=== PATIENT | male | born 1970 | race African-American/Black ===

== ENCOUNTER 2021-02-19 17:06 | Emergency (ER) | payer OTHER ==
[2021-02-19 17:42] VITALS: BMI 23.7
[2021-02-19 19:07] LABS: BASO % 0.7 % (0-2.0); EOS % 0.8 % (0-4.5); HEMATOCRIT 40.1 % (35.4-49); HEMOGLOBIN 13.3 GM/dL (11.7-16.9); LYMPH % 19.6 % (8-40); MCHC 33.1 g/dl (32.0-35.9); MEAN CELL VOLUME 81.7 fl (80-96); MEAN PLT VOLUME 8.1 fl (7.5-11.1); MONO % 8.8 % (3.8-10.2); NEUT % 70.1 % (42.8-82.8); PLATELET COUNT 213 10^3/uL (134-434); RBC 4.91 M/mm3 (4.00-5.60); RDW 15.8 % (11.9-15.9); WHITE BLOOD COUNT 7.1 K/mm3 (4.0-10.0)
[2021-02-19 19:13] LABS: INR 1.01 (0.83-1.09); PROTHROMBIN TIME (PATIENT) 12.2 SEC (9.7-13.0)
[2021-02-19 19:19] LABS: ALBUMIN 3.4 g/dl (3.4-5.0); CALCIUM 8.6 mg/dL (8.5-10.1)
[2021-02-19 19:20] LABS: BLOOD UREA NITROGEN 23.1 mg/dL (7-18)
[2021-02-19 19:23] LABS: CREATININE 0.7 mg/dL (0.55-1.3)
[2021-02-19 19:24] LABS: BILIRUBIN,TOTAL 0.2 mg/dL (0.2-1); TOT PROT 7.3 g/dl (6.4-8.2)
[2021-02-19 21:05] VITALS: PULSE 88
[2021-02-19 21:10] VITALS: TEMP 97.5
[2021-02-19 22:12] VITALS: BP 132/76
== END 2021-02-19 22:48 | disposition home or self-care (01) ==
LOC: JER 17:06
DX: R94.5 Abnormal results of liver function studies (principal); R00.0 Tachycardia, unspecified; R45.1 Restlessness and agitation
CPT/HCPCS: 36415; 71045-TC-FY; 73610-TC-LT-FY; 73630-TC-LT; 76705-TC; 80053; 84443; 85025; 85610; 93005; 93010; 99285-25